=== PATIENT | male | born 1995 | race Two or more races ===

== ENCOUNTER 2020-06-29 01:08 | Emergency (ER) | payer SELFPAY ==
[~2020-06-29] VITALS: Ht 182.9 cm; Wt 90.0 kg
--- NOTE | 2020-06-29 01:13 | NUR ---
PT BIB [facility] WHERE HE WAS RELEASED FROM ON AN L2K. UPON ARREST PT WAS REPORTING SI, HAS A HISTORY OF SA, NONE WIHTIN A FEW YEARS, DENIES SI OR SA AT THIS TIME. NAD, COOPERATIVE, SITTER IN LINE OF SIGHT. BED IN [facility], RAILS ENGAGED, VSS. OFFICERS STATE THEY DID NOT HAVE A PROVIDER ON TO CLEAR PT. REPORT TO [facility]BY. PT CARE TRANSFERRED.
--- NOTE | 2020-06-29 01:47 | NUR ---
Pt A&O x 4, in decision making capacity. States he does not want to harm himself. Pt states he is safe to go home. Provider DC'd pt from ER. Pt home in taxi.
[2020-06-29 01:49] VITALS: BP 128/75
== END 2020-06-29 01:51 | disposition home or self-care (01) ==
LOC: ED 01:38
DX: Z00.00 Encounter for general adult medical examination without abnormal findings (principal); F10.10 Alcohol abuse, uncomplicated; Y90.0 Blood alcohol level of less than 20 mg/100 ml
CPT/HCPCS: 99283